=== PATIENT | male | born 1945 | race Hispanic/Latino ===

== ENCOUNTER 2018-05-10 05:25 | Day surgery (SDC) | payer OTHER ==
[2018-05-10] VITALS (7 sets, daily range): BP systolic 90–122; BP diastolic 54–76
[~2018-05-10] VITALS: Ht 170.2 cm; Wt 93.0 kg
[~2018-05-10 05:25] MED LIST: ASPI-555 PO; CHOL100018 PO; CITA40TA6 PO; FERSL PO; FISH1CAP49 PO; FOLI1TAB15 PO; LATA7.5D OU; LORA10CA9 PO; LOSA100T58 PO; METF-446 PO; OCUSIGHT PO; SIMV80TA91 PO; TEAR OU
[2018-05-10] MEDS ORDERED: SODIUM CHLORIDE 0.9% 1000ML 1,000 ML IV ONE (06:03)
[2018-05-10] MEDS ORDERED: PROPOFOL 10 MG/ML 20ML VIAL IV ONE (06:28)
[2018-05-10] MEDS ORDERED: GLYCOPYRROLATE 0.2 MG/ML 5 ML VIAL ONE (06:29)
[2018-05-10] MEDS ORDERED: LIDOCAINE HCL-MPF 2% 5ML VIAL ONE (06:29)
[2018-05-10] MEDS ORDERED: PHENYLEPHRINE HCL 10 MG/ML 1ML VIAL IV ONE (06:56)
== END 2018-05-10 07:35 | disposition home or self-care (01) ==
LOC: DAH 05:25 → ENDO 05:25
PROVIDERS: ATTEND Internal Medicine
DX: Z12.11 Encounter for screening for malignant neoplasm of colon (principal); K63.5 Polyp of colon; K63.89 Other specified diseases of intestine; I10 Essential (primary) hypertension; E11.9 Type 2 diabetes mellitus without complications; M81.0 Age-related osteoporosis without current pathological fracture; E78.5 Hyperlipidemia, unspecified; M19.90 Unspecified osteoarthritis, unspecified site; A15.9 Respiratory tuberculosis unspecified; Z98.890 Other specified postprocedural states; Z68.36 Body mass index [BMI] 36.0-36.9, adult; Z79.899 Other long term (current) drug therapy; Z79.01 Long term (current) use of anticoagulants; M05.9 Rheumatoid arthritis with rheumatoid factor, unspecified; Z88.0 Allergy status to penicillin; M06.9 Rheumatoid arthritis, unspecified
CPT/HCPCS: 45380; 45381; 82948 ×2; 88305; 93005; A4606; J2370; J2704; J3490 ×2; J7030

== ENCOUNTER 2018-09-20 06:38 | Day surgery (SDC) | payer OTHER ==
[~2018-09-20] VITALS: Ht 172.7 cm; Wt 90.7 kg
[~2018-09-20 06:38] MED LIST changes: +SODIUM CHLORIDE 0.9% 1000ML 1,000 ML IV ONE
[2018-09-20] MEDS ORDERED: METH2.5T6 PO (07:32)
[2018-09-20] MEDS ORDERED: LATA7.5D OU (07:32)
[2018-09-20 07:49] VITALS: BP 127/63
[2018-09-20] MEDS ORDERED: PROPOFOL 10 MG/ML 20ML VIAL IV ONE (08:58)
[2018-09-20 09:11] VITALS: BP 81/40
[2018-09-20 09:15] VITALS: BP 123/51
[2018-09-20 09:30] VITALS: BP 105/52
== END 2018-09-20 09:38 | disposition home or self-care (01) ==
LOC: DAH 06:38 → ENDO 06:38
PROVIDERS: ATTEND Internal Medicine Gastroenterology
DX: K29.50 Unspecified chronic gastritis without bleeding (principal); K21.0 Gastro-esophageal reflux disease with esophagitis; D50.9 Iron deficiency anemia, unspecified; K31.89 Other diseases of stomach and duodenum; E78.5 Hyperlipidemia, unspecified; I10 Essential (primary) hypertension; E11.9 Type 2 diabetes mellitus without complications; M06.9 Rheumatoid arthritis, unspecified; M19.90 Unspecified osteoarthritis, unspecified site; M81.0 Age-related osteoporosis without current pathological fracture; Z88.0 Allergy status to penicillin; Z79.899 Other long term (current) drug therapy; Z79.82 Long term (current) use of aspirin; Z96.641 Presence of right artificial hip joint; Z98.890 Other specified postprocedural states; Z82.49 Family history of ischemic heart disease and other diseases of the circulatory system; Z83.3 Family history of diabetes mellitus
CPT/HCPCS: 43239; 82948; 88305; A4606; J2704; J7030

== ENCOUNTER 2018-12-09 10:31 | Day surgery (SDC) | payer OTHER ==
[2018-12-09] VITALS (7 sets, daily range): BP systolic 96–144; BP diastolic 57–72
[~2018-12-09] VITALS: Ht 170.2 cm; Wt 91.6 kg
[~2018-12-09 10:31] MED LIST changes: +METH2.5T6 PO; +PROPOFOL 10 MG/ML 20ML VIAL IV ONE
--- NOTE | 2018-12-09 11:00 | NUR ---
dc pt dc home via wc, no distress noted. denied any pain or discomforts. accompanied by spouse, dc instructions reinforced
== END 2018-12-09 11:00 | disposition home or self-care (01) ==
LOC: ENDO 10:31
PROVIDERS: ATTEND Internal Medicine Gastroenterology
DX: K31.89 Other diseases of stomach and duodenum (principal); K22.70 Barrett's esophagus without dysplasia; K21.0 Gastro-esophageal reflux disease with esophagitis; E78.5 Hyperlipidemia, unspecified; I10 Essential (primary) hypertension; E11.9 Type 2 diabetes mellitus without complications; M19.90 Unspecified osteoarthritis, unspecified site; M81.0 Age-related osteoporosis without current pathological fracture; D50.9 Iron deficiency anemia, unspecified; Z79.84 Long term (current) use of oral hypoglycemic drugs; Z79.899 Other long term (current) drug therapy; Z88.0 Allergy status to penicillin; Z79.82 Long term (current) use of aspirin; Z86.010 Personal history of colon polyps; Z96.641 Presence of right artificial hip joint; Z98.890 Other specified postprocedural states
CPT/HCPCS: 43239; 82948 ×2; 88305; A4606; J2704; J7030

== ENCOUNTER 2023-05-30 06:37 | Day surgery (SDC) | payer OTHER ==
[~2023-05-30] VITALS: Ht 170.2 cm; Wt 93.0 kg
[2023-05-30] VITALS (13 sets, daily range): BP systolic 87–136; BP diastolic 50–73; PULSE 58–90; RESP 15–16
[~2023-05-30 06:37] MED LIST changes: +AMLO2.5T4 PO; -ASPI-555 PO; +ASPI-556 PO; +ATOR40TA69 PO; +CELE200 PO; +CITA-108 PO; -CITA40TA6 PO; -FERSL PO; -LATA7.5D OU; -LOSA100T58 PO; +LOSA100T59 PO; +PANTOPRAZOLE PO; -PROPOFOL 10 MG/ML 20ML VIAL IV ONE; -SODIUM CHLORIDE 0.9% 1000ML 1,000 ML IV ONE; -TEAR OU
[2023-05-30] MEDS: 0.9%NACL 1000ML 1,000 ML IV ONE (07:09)
[2023-05-30] MEDS ORDERED: LIDOCAINE HCL 1% 20 ML VIAL ONE (09:00)
[2023-05-30] MEDS ORDERED: PROPOFOL 10 MG/ML 20ML VIAL IV ONE ×2 (09:00)
[2023-05-30] MEDS ORDERED: GLYCOPYRROLATE 0.2 MG/ML 5 ML VIAL ONE (09:10)
== END 2023-05-30 10:35 | disposition home or self-care (01) ==
LOC: ENDO 06:37 → DAH 06:37 → ENDO 10:35
PROVIDERS: ATTEND Internal Medicine Gastroenterology
DX: R93.3 Abnormal findings on diagnostic imaging of other parts of digestive tract (principal); K64.0 First degree hemorrhoids; K57.30 Diverticulosis of large intestine without perforation or abscess without bleeding; K29.50 Unspecified chronic gastritis without bleeding; K76.9 Liver disease, unspecified; I10 Essential (primary) hypertension; K21.9 Gastro-esophageal reflux disease without esophagitis; E66.01 Morbid (severe) obesity due to excess calories; M19.90 Unspecified osteoarthritis, unspecified site; E11.9 Type 2 diabetes mellitus without complications; E78.5 Hyperlipidemia, unspecified; M81.0 Age-related osteoporosis without current pathological fracture; M05.9 Rheumatoid arthritis with rheumatoid factor, unspecified; Z86.010 Personal history of colon polyps; Z98.890 Other specified postprocedural states; Z79.899 Other long term (current) drug therapy; Z88.0 Allergy status to penicillin; Z90.89 Acquired absence of other organs; Z79.82 Long term (current) use of aspirin; Z68.35 Body mass index [BMI] 35.0-35.9, adult
CPT/HCPCS: 82948 ×2; 45378; J7030 ×2; J2704 ×2; J3490; A4620; A4215; A4223; A7002; A4222; A4221; A4663; A4606